=== PATIENT | male | born 1960 | race Hispanic/Latino ===

== ENCOUNTER 2021-07-29 14:11 | Emergency (ER) | payer SELFPAY | END 2021-07-29 17:57 | disposition home or self-care (01) | LOC: ERS 14:11 | DX: U07.1 COVID-19 (principal); F17.210 Nicotine dependence, cigarettes, uncomplicated | CPT/HCPCS: 71045 ==

== ENCOUNTER 2023-01-09 12:35 | Emergency (ER) | payer OTHER, SELFPAY ==
[2023-01-09] MEDS ORDERED: Lidocaine 1% PF 5 ML VIAL ONE ×2 (15:39→15:40)
== END 2023-01-09 16:37 | disposition home or self-care (01) ==
LOC: ERS 12:35
DX: S61.213A Laceration without foreign body of left middle finger without damage to nail, initial encounter (principal); F17.210 Nicotine dependence, cigarettes, uncomplicated; W26.9XXA Contact with unspecified sharp object(s), initial encounter; Y92.812 Truck as the place of occurrence of the external cause
CPT/HCPCS: 12041